=== PATIENT | male | born 1985 | race Caucasian/White ===

== ENCOUNTER 2021-07-02 23:57 | Emergency (ER) | payer SELFPAY ==
[~2021-07-02] VITALS: Ht 190.5 cm; Wt 74.8 kg
--- NOTE | 2021-07-03 00:19 | NUR ---
[facility] 860 REQUESTING FOR WHEELCHAIR. PT ALERT AND ORIENTED X3. PT UNABLE TO AMBULATE BROUGHT IN ON A STRETCHER.
--- NOTE | 2021-07-03 01:33 | NUR ---
pt resting comfortably no complaints at this time.
--- NOTE | 2021-07-03 02:45 | NUR ---
pt sleeping, vss, attached to monitor.
--- NOTE | 2021-07-03 03:50 | NUR ---
Patient is resting comfortably in bed with eyes closed. Easily aroused. VSS
--- NOTE | 2021-07-03 04:44 | NUR ---
pt sleeping, attached to monitor and pox. vss
--- NOTE | 2021-07-03 05:30 | NUR ---
Patient is resting comfortably in bed with eyes closed. Easily aroused. VSS
--- NOTE | 2021-07-03 06:40 | NUR ---
pt sleeping, attached to monitor and pox
--- NOTE | 2021-07-03 11:40 | NUR ---
PT WAS PROVIDED WITH WHEELCHAIR TO HELP WITH MOBILIZATION
--- NOTE | 2021-07-03 11:45 | NUR ---
Patient discharged to home in stable condition. Written and verbal after care instructions given. Patient verbalizes understanding of instruction.
[2021-07-03 12:40] VITALS: BP 123/78
== END 2021-07-03 12:40 | disposition home or self-care (01) ==
LOC: ER 23:57
DX: Z00.8 Encounter for other general examination (principal); Z99.3 Dependence on wheelchair; Z93.3 Colostomy status

== ENCOUNTER 2023-10-03 11:38 | Inpatient (IN) | payer OTHER ==
[~2023-10-03] VITALS: Ht 190.5 cm; Wt 80.3 kg
[2023-10-03] MEDS ORDERED: VANCOMYCIN 1 GM in IV D5W 250 ML IV ONE (12:00)
[2023-10-03] MEDS ORDERED: LORAZEPAM INJ 2 MG/ML VIAL IV ONE (12:00)
[2023-10-03] MEDS ORDERED: PIPERACILLIN /TAZOBACTAM 3.375 G in IV D5W 50 ML IV ONE (12:00)
[2023-10-03] MEDS ORDERED: FLUCONAZOLE IN NS 100 MG in PREMIX 1 EA IV SCH ×2 (12:00)
[2023-10-03] MEDS ORDERED: IV NS 0.9% 1,000 ML BAG IV ONE ×2 (12:30→14:00)
[2023-10-03] MEDS ORDERED: VANCOMYCIN 1 GM /D5W 250 ML PB IV ONE (12:48)
[2023-10-03] MEDS ORDERED: PIPERACI/TAZO 3.375GM/D5W 50ML PB IV ONE (12:48)
[2023-10-03] MEDS ORDERED: FLUCONAZOLE IN NS 100 MG in PREMIX 1 EA IV ONE ×2 (12:52)
[2023-10-03] MEDS ORDERED: HALOPERIDOL LACTATE INJ 5 MG/ML VIAL IM ONE (13:00)
[2023-10-03] MEDS ORDERED: MORPHINE SULFATE INJ 2 MG/ML DISP.SYRIN IV ONE (13:00)
[2023-10-03] MEDS ORDERED: ONDANSETRON HCL/PF 4 MG/2 ML VIAL IVP ONE (13:00)
[2023-10-03] MEDS ORDERED: MORPHINE SULFATE INJ 4 MG/ML DISP.SYRIN ONE (13:04)
[2023-10-03] MEDS ORDERED: HALOPERIDOL LACTATE INJ 5 MG/ML VIAL ONE ×2 (13:04→13:10)
[2023-10-03] MEDS ORDERED: ONDANSETRON HCL/PF 4 MG/2 ML VIAL ONE (13:04)
[2023-10-03 13:10] LABS: BASOPHILS # (AUTO) 0.2 K/uL (0.0-0.2); BASOPHILS % (AUTO) 0.7 % (0.0-2.0); EOSINOPHILS # (AUTO) 0.1 K/uL (0.0-0.7); EOSINOPHILS % (AUTO) 0.2 % (0.0-6.0); HEMATOCRIT 23 % (39-51); LYMPHOCYTES # (AUTO) 10.2 K/uL (0.8-4.8); LYMPHOCYTES % (AUTO) 36.8 % (20.0-44.0); MEAN CORPUSCULAR HEMOGLOBIN 18 PG (26.0-33.0); MEAN CORPUSCULAR HGB CONC 28 g/dl (31.0-36.0); MEAN CORPUSCULAR VOLUME 64 fL (80-96); MONOCYTES # (AUTO) 1.6 K/uL (0.1-1.30); MONOCYTES % (AUTO) 5.8 % (2.0-12.0); NEUTROPHILS # (AUTO) 15.8 K/uL (1.8-8.9); NEUTROPHILS % (AUTO) 56.5 % (43.0-81.0); PLATELET COUNT (AUTO) 567 K/uL (150-450); RED BLOOD CELL COUNT(AUTO) 3.62 MIL/uL (4.5-6.0); RED CELL DISTRIBUTION WIDTH 21.7 % (11.5-15.0); WHITE BLOOD COUNT (AUTO) 27.9 K/uL (4.3-11.0)
[2023-10-03 13:11] LABS: ALANINE AMINOTRANSFERASE 29 U/L (12-78); ALCOHOL, BLOOD < 3 mg/dL (0-10); ALKALINE PHOSPHATASE 218 U/L (46-116); ASPARTATE AMINOTRANSFERASE 37 U/L (15-37); BILIRUBIN,DIRECT 0.1 mg/dL (0.0-0.2); BILIRUBIN,TOTAL 0.3 mg/dL (0.2-1.0); CALCIUM, SERUM 8.2 mg/dL (8.5-10.1); CARBON DIOXIDE 26 mmol/L (21-32); CHLORIDE 86 mmol/L (98-107); CREATININE 0.9 mg/dL (0.6-1.3); GLUCOSE 107 mg/dL (74-106); TOTAL PROTEIN, SERUM 6.8 g/dL (6.4-8.2); UREA NITROGEN, BLOOD 11 mg/dL (7-18)
[2023-10-03] MEDS ORDERED: IOHEXOL-300 100 ML VIAL IV ONE (13:14)
[2023-10-03] MEDS ORDERED: CT SWABBABLE VALVE TRANS SET 1 EA INFUS.SET MC ONE (13:14)
[2023-10-03] MEDS ORDERED: IV NS 0.9% 250 ML IV ONE (13:14)
[2023-10-03 13:16] LABS: INR 1.13 (0.91-1.10); PARTIAL THROMBOPLASTIN TIME 31.3 SEC (24.3-34.3); PROTHROMBIN TIME 11.9 SECS (9.2-11.1)
[2023-10-03 13:18] LABS: THYROID STIMULATING HORMONE 2.641 uIU/mL (0.358-3.74)
[2023-10-03 13:21] LABS: HEMOGLOBIN 6.5 g/dL (13.5-17.5)
[2023-10-03] MEDS ORDERED: FLUCONAZOLE IN NS,PREMIX 200 MG in PREMIX 1 EA IV ONE ×2 (13:30)
[2023-10-03] MEDS ORDERED: [UNRECOGNIZED DRUG - OTHER] (13:36)
[2023-10-03] MEDS ORDERED: CHOL200059 PO (13:36)
[2023-10-03] MEDS ORDERED: ASCO-340 PO (13:36)
[2023-10-03] MEDS ORDERED: AMIN30LI2 PO (13:36)
[2023-10-03] MEDS ORDERED: NA P133E RC (13:36)
[2023-10-03] MEDS ORDERED: BISA10SU11 RC (13:36)
[2023-10-03] MEDS ORDERED: ASPI-1169 PO (13:36)
[2023-10-03] MEDS ORDERED: LORA-259 PO (13:36)
[2023-10-03] MEDS ORDERED: PANT40TA49 PO (13:36)
[2023-10-03] MEDS ORDERED: ACET-868 PO (13:36)
[2023-10-03] MEDS ORDERED: ZINC220C6 PO (13:36)
[2023-10-03] MEDS ORDERED: DIPH25TA25 PO (13:36)
[2023-10-03] MEDS ORDERED: MULT-213 PO (13:36)
[2023-10-03] MEDS ORDERED: ESCI5TAB PO (13:36)
[2023-10-03] MEDS ORDERED: [UNRECOGNIZED DRUG - OTHER] TP (13:36)
[2023-10-03] MEDS ORDERED: TOLT2CAP PO (13:36)
[2023-10-03] MEDS ORDERED: MAGN400O6 PO (13:36)
[2023-10-03] MEDS ORDERED: HEPA500039 SQ (13:36)
[2023-10-03] MEDS ORDERED: HYDR-3980 PO (13:36)
[2023-10-03] MEDS ORDERED: XEROFORM TD (13:36)
[2023-10-03] MEDS ORDERED: CRAN425C6 PO (13:36)
[2023-10-03] MEDS ORDERED: ACET-2605 PO (13:36)
[2023-10-03 13:37] LABS: SODIUM SERUM 120 mmol/L (136-145)
[2023-10-03 13:38] LABS: ALBUMIN 0.9 g/dL (3.4-5.0); LACTIC ACID 3.4 mmol/L (0.4-2.0); POTASSIUM 2.7 mmol/L (3.5-5.1); SERUM AMMONIA 4 umol/L (11-32)
[2023-10-03 13:47] LABS: ANISOCYTOSIS 1+; BAND % (MANUAL) 4 % (0.0-5.0); HYPOCHROMASIA 1+; LYMPHOCYTES % (MANUAL) 18 % (16-48); MONOCYTES % (MANUAL) 3 % (0-11.0); NEUTROPHILS % (MANUAL) 75 (42-76); PLATELET ESTIMATE ADEQUATE; STOMATOCYTES 1+; TARGET CELLS 1+
[2023-10-03] MEDS ORDERED: IV PREMIX D5 1/2NS + KCL 1,000 ML IV ONE (14:30)
[2023-10-03 14:41] LABS: APPEARANCE,URINE CLOUDY (CLEAR); BILIRUBIN,URINE NEGATIVE (NEGATIVE); BLOOD, URINE 2+ Ery/uL (NEGATIVE); COLOR,URINE YELLOW (YELLOW); KETONES,URINE NEGATIVE (NEGATIVE); LEUKOCYTE ESTERASE ,URINE 3+ (NEGATIVE); NITRITE, URINE NEGATIVE (NEGATIVE); PROTEIN,URINE 2+ mg/dl (NEGATIVE); UGLUCOSE NEGATIVE (NEGATIVE); UROBILINOGEN,URINE 0.2 EU/dL (0.2)
[2023-10-03 15:17] LABS: RBC,URINE 21-50 /HPF (0-2); WBC,URINE 51-80 /HPF (0-3)
[2023-10-03 15:18] LABS: ADD URINE CULTURE YES; BACTERIA,URINE 2+ /HPF (None Seen)
[2023-10-03 15:19] LABS: PH,URINE 8.5 (5.0-8.0)
[2023-10-03 15:21] LABS: OTHER CRYSTALS,URINE AMMONIUM BIURATES 1+ /HPF (None Seen); URINE AMORPHOUS PHOSPHATES Many /HPF (None Seen)
[2023-10-03] MEDS ORDERED: MAGNESIUM HYDROXIDE 30 ML UDC PO PRN (17:30)
[2023-10-03] MEDS ORDERED: ZOLPIDEM TARTRATE 5 MG TABLET PO PRN (17:30)
[2023-10-03] MEDS ORDERED: Z GUARD REMEDY 4 OZ OINT TP PRN (17:30)
[2023-10-03] MEDS ORDERED: ONDANSETRON HCL/PF 4 MG/2 ML VIAL IVP PRN (17:30)
[2023-10-03] MEDS ORDERED: MAG HYDROX/AL HYDROX/SIMETH 30 ML UDC PO PRN (17:30)
[2023-10-03] MEDS ORDERED: ALBUMIN 5% 12.5 GM/250 ML BOTTLE IV ONE (18:00)
[2023-10-03] MEDS: TOLTERODINE 2 MG CAP.SR PO SCH (19:07)
[2023-10-03] MEDS ORDERED: ALBUMIN 5% 12.5 GM in PREMIX 1 EA IV ONE (19:30)
[2023-10-03] MEDS: CEFEPIME 1 GM in IV D5W 50 ML IV SCH (20:00)
[2023-10-03] MEDS: VANCOMYCIN 1 GM in IV D5W 250 ML IV SCH (21:41)
[2023-10-03 22:16] LABS: AMPHETAMINE, URINE NEGATIVE (NEGATIVE); BARBITURATE, URINE NEGATIVE (NEGATIVE); BENZODIAZEPINE, URINE NEGATIVE (NEGATIVE); CANNABINOID, URINE NEGATIVE (NEGATIVE); COCCAINE, URINE NEGATIVE (NEGATIVE); PHENCYCLIDINE SCREEN,URINE NEGATIVE (NEGATIVE)
[2023-10-03 22:19] LABS: OPIATE, URINE POSITIVE (NEGATIVE)
[2023-10-04] VITALS: BP 92/57; TEMP 97.5; O2SAT 100
[2023-10-04] MEDS: IV NS 0.9% 1,000 ML IV PRN ×2 (00:09→21:14)
[2023-10-04] MEDS ORDERED: VANCOMYCIN 1 GM /D5W 250 ML PB IV ONE (05:21)
[2023-10-04] MEDS: VANCOMYCIN 1 GM in IV D5W 250 ML IV SCH ×3 (05:23→21:00)
[2023-10-04 08:00] VITALS: BP 95/47; TEMP 98.5; O2SAT 97
[2023-10-04] MEDS ORDERED: Medication Not On Formulary EA (Cranberry Extract (Cranberry) 450 MG) PO SCH (09:00)
[2023-10-04] MEDS ORDERED: FLUCONAZOLE IN NS,PREMIX 400 MG in PREMIX 1 EA IV SCH ×2 (09:00)
[2023-10-04] MEDS: TOLTERODINE 2 MG CAP.SR PO SCH ×2 (10:40→16:41)
[2023-10-04] MEDS: CEFEPIME 1 GM in IV D5W 50 ML IV SCH ×2 (10:40→20:30)
[2023-10-04] MEDS: ASCORBIC ACID 500 MG TABLET PO SCH (10:41)
[2023-10-04] MEDS: ESCITALOPRAM OXALATE (10 MG) 10 MG TABLET PO SCH (10:41)
[2023-10-04] MEDS: MULTIVIT W/MINERALS 1 TAB TABLET PO SCH (10:41)
[2023-10-04] MEDS: CHOLECALCIFEROL 1,000 UNIT TABLET (VIT D3) PO SCH (10:41)
[2023-10-04] MEDS: MIDODRINE HCL (5MG) 5 MG TABLET PO SCH ×3 (10:44→16:41)
[2023-10-04] MEDS: PROSOURCE / PROSTAT (PYXIS) 30 ML UDC PO SCH (11:29)
[2023-10-04 12:00] VITALS: BP 95/50; TEMP 98.1; O2SAT 96
[2023-10-04] MEDS: FLUCONAZOLE IN NS,PREMIX 100 MG in PREMIX 1 EA IV SCH ×2 (14:03)
[2023-10-04 16:00] VITALS: BP 96/49; TEMP 99.9; O2SAT 97
[2023-10-04] MEDS: PANTOPRAZOLE 40 MG VIAL IV SCH (16:41)
[2023-10-04] MEDS: ACETAMINOPHEN 325 MG TABLET PO PRN (16:42)
[2023-10-04 18:00] LABS: HEMOGLOBIN 5.8 g/dL (13.5-17.5)
[2023-10-04 20:00] VITALS: BP 111/76; TEMP 97.9; O2SAT 97
[2023-10-05 04:00] VITALS: BP 100/69; TEMP 98.2; O2SAT 97
[2023-10-05] MEDS: VANCOMYCIN 1 GM in IV D5W 250 ML IV SCH ×2 (04:33→13:56)
[2023-10-05] MEDS: ACETAMINOPHEN 325 MG TABLET PO PRN ×2 (05:38→22:47)
[2023-10-05] MEDS: IV NS 0.9% 1,000 ML IV PRN ×2 (05:39→19:54)
[2023-10-05] MEDS: MIDODRINE HCL (5MG) 5 MG TABLET PO SCH ×3 (09:00→17:00)
[2023-10-05] MEDS: ASCORBIC ACID 500 MG TABLET PO SCH (09:01)
[2023-10-05] MEDS: PANTOPRAZOLE 40 MG VIAL IV SCH ×2 (09:02→17:00)
[2023-10-05] MEDS: CHOLECALCIFEROL 1,000 UNIT TABLET (VIT D3) PO SCH (09:02)
[2023-10-05] MEDS: ESCITALOPRAM OXALATE (10 MG) 10 MG TABLET PO SCH (09:09)
[2023-10-05] MEDS: CEFEPIME 1 GM in IV D5W 50 ML IV SCH ×2 (09:09→19:54)
[2023-10-05] MEDS: TOLTERODINE 2 MG CAP.SR PO SCH ×2 (09:09→17:00)
[2023-10-05] MEDS: MULTIVIT W/MINERALS 1 TAB TABLET PO SCH (09:10)
[2023-10-05] MEDS: PROSOURCE / PROSTAT (PYXIS) 30 ML UDC PO SCH ×4 (09:35→17:00)
[2023-10-05 12:00] VITALS: BP 100/66; TEMP 97.9; O2SAT 97
[2023-10-05] MEDS: FLUCONAZOLE IN NS,PREMIX 100 MG in PREMIX 1 EA IV SCH ×2 (12:00)
[2023-10-05] MEDS: SOD FERRIC GLUC 125 MG in IV NS 0.9% 100 ML IV SCH ×2 (14:00→17:31)
[2023-10-05 20:00] VITALS: BP 96/51; TEMP 99.5; O2SAT 98
[2023-10-05] MEDS: DOXYCYCLINE 100 MG in IV D5W 100 ML IV SCH (20:45)
[2023-10-06] VITALS: BP 100/59; TEMP 98.2; O2SAT 98
[2023-10-06 04:00] VITALS: BP 113/62; TEMP 97.6; O2SAT 97
[2023-10-06] MEDS: IV NS 0.9% 1,000 ML IV PRN ×2 (04:10→19:30)
[2023-10-06 08:00] VITALS: BP 113/62; TEMP 97.6; O2SAT 97
[2023-10-06] MEDS: CEFEPIME 1 GM in IV D5W 50 ML IV SCH ×2 (08:00→21:18)
[2023-10-06] MEDS: TOLTERODINE 2 MG CAP.SR PO SCH ×2 (09:00→17:16)
[2023-10-06] MEDS: MULTIVIT W/MINERALS 1 TAB TABLET PO SCH (09:00)
[2023-10-06] MEDS: DOXYCYCLINE 100 MG in IV D5W 100 ML IV SCH ×2 (09:00→20:02)
[2023-10-06] MEDS: ASCORBIC ACID 500 MG TABLET PO SCH (09:00)
[2023-10-06] MEDS: CHOLECALCIFEROL 1,000 UNIT TABLET (VIT D3) PO SCH (09:00)
[2023-10-06] MEDS: PROSOURCE / PROSTAT (PYXIS) 30 ML UDC PO SCH ×3 (09:00→17:00)
[2023-10-06] MEDS: MIDODRINE HCL (5MG) 5 MG TABLET PO SCH ×3 (09:00→17:00)
[2023-10-06] MEDS: PANTOPRAZOLE 40 MG VIAL IV SCH ×2 (09:00→17:16)
[2023-10-06] MEDS: ESCITALOPRAM OXALATE (10 MG) 10 MG TABLET PO SCH (09:00)
[2023-10-06 12:00] VITALS: BP 113/62; TEMP 97.6; O2SAT 97
[2023-10-06] MEDS: MUPIROCIN OINT 2% 22 GM TUBE TP SCH (14:00)
[2023-10-06] MEDS: SOD FERRIC GLUC 125 MG in IV NS 0.9% 100 ML IV SCH (14:03)
[2023-10-06 16:00] VITALS: BP 113/62; TEMP 97.6; O2SAT 97
[2023-10-06 18:28] LABS: HEMOGLOBIN 6.6 g/dL (13.5-17.5)
[2023-10-06 20:00] VITALS: BP 108/62; TEMP 97.3; O2SAT 100
[2023-10-06] MEDS: ACETAMINOPHEN 325 MG TABLET PO PRN (23:03)
[2023-10-07] VITALS: BP_SYST 101; BP_SYST 95; BP_DIAS 56; BP_DIAS 62; TEMP 97.5; TEMP 98.6; O2SAT 100
[2023-10-07] MEDS ORDERED: MORPHINE SULFATE INJ 4 MG/ML DISP.SYRIN IV PRN (01:30)
[2023-10-07] MEDS: MUPIROCIN OINT 2% 22 GM TUBE TP SCH ×2 (02:29→15:05)
[2023-10-07 04:00] VITALS: BP 101/62; TEMP 98.6; O2SAT 100
[2023-10-07] MEDS: IV NS 0.9% 1,000 ML IV PRN (04:43)
[2023-10-07] MEDS: HYDROCODONE/APAP 5/325MG TABLET PO PRN ×2 (05:41→20:41)
[2023-10-07] MEDS ORDERED: IV NS 0.9% 1,000 ML IV PRN (06:13)
[2023-10-07 08:00] VITALS: BP 103/55; TEMP 97.7; O2SAT 97
[2023-10-07] MEDS: CEFEPIME 1 GM in IV D5W 50 ML IV SCH ×2 (08:50→20:36)
[2023-10-07] MEDS: ASCORBIC ACID 500 MG TABLET PO SCH (08:51)
[2023-10-07] MEDS: CHOLECALCIFEROL 1,000 UNIT TABLET (VIT D3) PO SCH (08:51)
[2023-10-07] MEDS: MULTIVIT W/MINERALS 1 TAB TABLET PO SCH (08:51)
[2023-10-07] MEDS: ESCITALOPRAM OXALATE (10 MG) 10 MG TABLET PO SCH (08:52)
[2023-10-07] MEDS: MIDODRINE HCL (5MG) 5 MG TABLET PO SCH ×4 (08:52→17:00)
[2023-10-07] MEDS: PANTOPRAZOLE 40 MG VIAL IV SCH ×2 (08:53→17:19)
[2023-10-07] MEDS: TOLTERODINE 2 MG CAP.SR PO SCH ×2 (08:53→17:19)
[2023-10-07] MEDS: PROSOURCE / PROSTAT (PYXIS) 30 ML UDC PO SCH ×3 (08:54→17:20)
[2023-10-07] MEDS: DOXYCYCLINE 100 MG in IV D5W 100 ML IV SCH ×2 (09:55→21:00)
[2023-10-07 12:00] VITALS: BP 100/62; TEMP 97.7; O2SAT 97
[2023-10-07] MEDS: SOD FERRIC GLUC 125 MG in IV NS 0.9% 100 ML IV SCH (14:59)
[2023-10-07 16:00] VITALS: BP 102/59; TEMP 97.3; O2SAT 100
[2023-10-07 20:00] VITALS: BP 100/55; TEMP 98.4; O2SAT 100
[2023-10-08] VITALS: BP 95/56; TEMP 98.6; O2SAT 100
[2023-10-08] MEDS: MUPIROCIN OINT 2% 22 GM TUBE TP SCH ×2 (02:44→14:00)
[2023-10-08 04:00] VITALS: BP 95/56; TEMP 98.6; O2SAT 100
[2023-10-08] MEDS: CEFEPIME 1 GM in IV D5W 50 ML IV SCH (07:47)
[2023-10-08 08:00] VITALS: BP 95/56; TEMP 98.6; O2SAT 100
[2023-10-08] MEDS: PROSOURCE / PROSTAT (PYXIS) 30 ML UDC PO SCH ×3 (08:25→16:36)
[2023-10-08] MEDS: PANTOPRAZOLE 40 MG VIAL IV SCH ×2 (08:29→16:40)
[2023-10-08] MEDS: DOXYCYCLINE 100 MG in IV D5W 100 ML IV SCH ×2 (08:29→21:00)
[2023-10-08] MEDS: MULTIVIT W/MINERALS 1 TAB TABLET PO SCH (08:30)
[2023-10-08] MEDS: ASCORBIC ACID 500 MG TABLET PO SCH (08:30)
[2023-10-08] MEDS: CHOLECALCIFEROL 1,000 UNIT TABLET (VIT D3) PO SCH (08:30)
[2023-10-08] MEDS: TOLTERODINE 2 MG CAP.SR PO SCH ×2 (08:30→16:37)
[2023-10-08] MEDS: ESCITALOPRAM OXALATE (10 MG) 10 MG TABLET PO SCH (08:31)
[2023-10-08] MEDS: MIDODRINE HCL (5MG) 5 MG TABLET PO SCH ×3 (08:32→16:37)
[2023-10-08 12:00] VITALS: BP 95/56; TEMP 98.6; O2SAT 100
[2023-10-08] MEDS: SOD FERRIC GLUC 125 MG in IV NS 0.9% 100 ML IV SCH (15:05)
[2023-10-08 16:00] VITALS: BP 95/56; TEMP 98.6; O2SAT 100
[2023-10-08] MEDS: MEROPENEM 1 G in IV NS 0.9% 100 ML IV SCH ×3 (16:10→21:00)
[2023-10-09] VITALS: BP 123/69; TEMP 98.2; O2SAT 100
[2023-10-09] MEDS: MUPIROCIN OINT 2% 22 GM TUBE TP SCH ×2 (02:00→13:01)
[2023-10-09] MEDS ORDERED: HYDROCODONE/APAP 5/325MG TABLET PO PRN (02:30)
[2023-10-09] MEDS: HYDROCODONE/APAP 5/325MG TABLET PO PRN ×3 (02:32→18:21)
[2023-10-09 04:00] VITALS: BP 104/62; TEMP 98.1; O2SAT 96
[2023-10-09] MEDS: MEROPENEM 1 G in IV NS 0.9% 100 ML IV SCH ×3 (05:00→20:44)
[2023-10-09] MEDS: PANTOPRAZOLE 40 MG VIAL IV SCH ×2 (08:22→16:55)
[2023-10-09] MEDS: DOXYCYCLINE 100 MG in IV D5W 100 ML IV SCH ×2 (08:22→20:44)
[2023-10-09] MEDS: MIDODRINE HCL (5MG) 5 MG TABLET PO SCH ×3 (08:23→16:55)
[2023-10-09] MEDS: ESCITALOPRAM OXALATE (10 MG) 10 MG TABLET PO SCH (08:23)
[2023-10-09] MEDS: PROSOURCE / PROSTAT (PYXIS) 30 ML UDC PO SCH ×3 (08:23→16:55)
[2023-10-09] MEDS: TOLTERODINE 2 MG CAP.SR PO SCH ×2 (08:23→16:55)
[2023-10-09] MEDS: MULTIVIT W/MINERALS 1 TAB TABLET PO SCH (08:24)
[2023-10-09] MEDS: ASCORBIC ACID 500 MG TABLET PO SCH (08:24)
[2023-10-09] MEDS: CHOLECALCIFEROL 1,000 UNIT TABLET (VIT D3) PO SCH (08:24)
[2023-10-09] MEDS: SOD FERRIC GLUC 125 MG in IV NS 0.9% 100 ML IV SCH (13:01)
[2023-10-10] MEDS: MUPIROCIN OINT 2% 22 GM TUBE TP SCH ×2 (01:20→14:00)
[2023-10-10] MEDS: MEROPENEM 1 G in IV NS 0.9% 100 ML IV SCH ×3 (04:51→21:00)
[2023-10-10] MEDS: PROSOURCE / PROSTAT (PYXIS) 30 ML UDC PO SCH ×3 (08:09→17:00)
[2023-10-10] MEDS: TOLTERODINE 2 MG CAP.SR PO SCH ×3 (08:09→17:00)
[2023-10-10] MEDS: ASCORBIC ACID 500 MG TABLET PO SCH (08:09)
[2023-10-10] MEDS: CHOLECALCIFEROL 1,000 UNIT TABLET (VIT D3) PO SCH (08:10)
[2023-10-10] MEDS: ESCITALOPRAM OXALATE (10 MG) 10 MG TABLET PO SCH (08:10)
[2023-10-10] MEDS: MULTIVIT W/MINERALS 1 TAB TABLET PO SCH (08:10)
[2023-10-10] MEDS: PANTOPRAZOLE 40 MG VIAL IV SCH ×2 (08:22→17:00)
[2023-10-10] MEDS: DOXYCYCLINE 100 MG in IV D5W 100 ML IV SCH ×2 (08:22→21:00)
[2023-10-10] MEDS: MIDODRINE HCL (5MG) 5 MG TABLET PO SCH ×3 (08:41→17:00)
[2023-10-10] MEDS ORDERED: MERO1PIG IV (12:10)
[2023-10-10] MEDS ORDERED: DOXY-326 PO (12:10)
[2023-10-10] MEDS ORDERED: PANT40TA2 PO (12:10)
[2023-10-10] MEDS ORDERED: MIDO5TAB4 PO (12:10)
[2023-10-10 20:00] VITALS: BP 0/0
[2023-10-11] VITALS: BP 0/0; O2SAT 96
[2023-10-11] MEDS: MUPIROCIN OINT 2% 22 GM TUBE TP SCH ×2 (02:00→14:43)
[2023-10-11] MEDS: HYDROCODONE/APAP 5/325MG TABLET PO PRN (03:56)
[2023-10-11 04:00] VITALS: BP 104/66; TEMP 99.2; O2SAT 98
[2023-10-11] MEDS: MEROPENEM 1 G in IV NS 0.9% 100 ML IV SCH ×3 (05:00→21:00)
[2023-10-11] MEDS: PROSOURCE / PROSTAT (PYXIS) 30 ML UDC PO SCH ×3 (09:00→17:00)
[2023-10-11] MEDS: DOXYCYCLINE 100 MG in IV D5W 100 ML IV SCH ×2 (09:00→21:00)
[2023-10-11] MEDS: MIDODRINE HCL (5MG) 5 MG TABLET PO SCH ×3 (09:00→17:00)
[2023-10-11] MEDS: PANTOPRAZOLE 40 MG VIAL IV SCH ×2 (09:00→16:55)
[2023-10-11] MEDS: CHOLECALCIFEROL 1,000 UNIT TABLET (VIT D3) PO SCH (09:06)
[2023-10-11] MEDS: ESCITALOPRAM OXALATE (10 MG) 10 MG TABLET PO SCH (09:06)
[2023-10-11] MEDS: MULTIVIT W/MINERALS 1 TAB TABLET PO SCH (09:06)
[2023-10-11] MEDS: TOLTERODINE 2 MG CAP.SR PO SCH ×2 (09:07→16:59)
[2023-10-11] MEDS: ASCORBIC ACID 500 MG TABLET PO SCH (09:07)
[2023-10-11 09:38] VITALS: BP 0/0; O2SAT 0
[2023-10-11 12:00] VITALS: BP 100/47; TEMP 97.5; O2SAT 0
[2023-10-11 16:00] VITALS: BP 100/47; TEMP 97.5
[2023-10-11 20:00] VITALS: BP 107/70; TEMP 98.8; O2SAT 94
[2023-10-12] MEDS: MUPIROCIN OINT 2% 22 GM TUBE TP SCH (02:00)
[2023-10-12 04:00] VITALS: BP 112/72; TEMP 98.1; O2SAT 93
[2023-10-12] MEDS: MEROPENEM 1 G in IV NS 0.9% 100 ML IV SCH (05:00)
[2023-10-12] MEDS: HYDROCODONE/APAP 5/325MG TABLET PO PRN ×2 (06:27→12:02)
[2023-10-12 08:00] VITALS: BP 105/59; TEMP 98.4; O2SAT 96
[2023-10-12] MEDS: MIDODRINE HCL (5MG) 5 MG TABLET PO SCH (08:26)
[2023-10-12] MEDS: PANTOPRAZOLE 40 MG VIAL IV SCH (08:26)
[2023-10-12] MEDS: TOLTERODINE 2 MG CAP.SR PO SCH (08:26)
[2023-10-12] MEDS: DOXYCYCLINE 100 MG in IV D5W 100 ML IV SCH (08:26)
[2023-10-12] MEDS: ESCITALOPRAM OXALATE (10 MG) 10 MG TABLET PO SCH (08:26)
[2023-10-12] MEDS: ASCORBIC ACID 500 MG TABLET PO SCH (08:27)
[2023-10-12] MEDS: MULTIVIT W/MINERALS 1 TAB TABLET PO SCH (08:27)
[2023-10-12] MEDS: PROSOURCE / PROSTAT (PYXIS) 30 ML UDC PO SCH (08:27)
[2023-10-12] MEDS: CHOLECALCIFEROL 1,000 UNIT TABLET (VIT D3) PO SCH (08:27)
[2023-10-12] MEDS ORDERED: DAKINS QUARTER STRENGTH (0.125%) 480 ML BOTTLE TOP SCH (09:00)
[2023-10-12] MEDS ORDERED: IV NS 0.9% 500 ML IV ONE (12:30)
== END 2023-10-12 12:42 | DRG 720 ==
LOC: ER 11:42 → TRANSITION 18:36 → TELE1 22:17 → MEDSG1 10-11 17:20
PROVIDERS: ADMIT Nurse Practitioner Acute Care; ATTEND Internal Medicine
PROC: 05HY33Z Insertion of Infusion Device into Upper Vein, Percutaneous Approach (ICD-10-PCS; principal; 2023-10-03)
DX: A41.9 Sepsis, unspecified organism (principal); R65.21 Severe sepsis with septic shock; G93.41 Metabolic encephalopathy; E43 Unspecified severe protein-calorie malnutrition; L89.154 Pressure ulcer of sacral region, stage 4; E87.20 Acidosis, unspecified; G82.20 Paraplegia, unspecified; E86.1 Hypovolemia; E66.01 Morbid (severe) obesity due to excess calories; E87.1 Hypo-osmolality and hyponatremia; E87.6 Hypokalemia; E88.09 Other disorders of plasma-protein metabolism, not elsewhere classified; I10 Essential (primary) hypertension; Z74.01 Bed confinement status; Z98.1 Arthrodesis status; Z93.1 Gastrostomy status; Z93.3 Colostomy status; N39.0 Urinary tract infection, site not specified; V89.2XXS Person injured in unspecified motor-vehicle accident, traffic, sequela; R13.10 Dysphagia, unspecified; M46.28 Osteomyelitis of vertebra, sacral and sacrococcygeal region; D64.9 Anemia, unspecified; Z68.22 Body mass index [BMI] 22.0-22.9, adult; F33.2 Major depressive disorder, recurrent severe without psychotic features; Z91.199 Patient's noncompliance with other medical treatment and regimen due to unspecified reason; R62.7 Adult failure to thrive; K92.2 Gastrointestinal hemorrhage, unspecified; Z53.20 Procedure and treatment not carried out because of patient's decision for unspecified reasons; W19.XXXA Unspecified fall, initial encounter; Y93.9 Activity, unspecified; Y92.89 Other specified places as the place of occurrence of the external cause; L89.629 Pressure ulcer of left heel, unspecified stage; L89.619 Pressure ulcer of right heel, unspecified stage
CPT/HCPCS: 36415; 71045-TC; 80048-TC; 80076-TC; 81001; 82140-TC; 83605-TC; 84443-TC; 84484-TC; 85025-TC; 85027-TC; 85730-TC; 86850-TC; 87040-TC; 87081-TC; 87086-TC; 87186-TC; A4216; A4223; A6253; A6403; C9113; G0378; G0480; J0692; J1450; J1630; J2185; J2270; J2405; J2543; J2916; J3370; J3490; J7030; J7040; J7050; J7060; P9045; Q9967

== ENCOUNTER 2024-04-02 19:14 | Inpatient (IN) | payer OTHER ==
[~2024-04-02] VITALS: Ht 185.4 cm; Wt 88.9 kg
[~2024-04-02 19:14] MED LIST: ACET-2605 PO; ACET-868 PO; AMIN30LI2 PO; ASCO-340 PO; ASPI-1169 PO; BISA10SU11 RC; CHOL200059 PO; CRAN425C6 PO; DIPH25TA25 PO; DOXY-326 PO; ESCI5TAB PO; HEPA500039 SQ; HYDR-3980 PO; LORA-259 PO; MAGN400O6 PO; MERO1PIG IV; MIDO5TAB4 PO; MULT-213 PO; NA P133E RC; PANT40TA2 PO; PANT40TA49 PO; TOLT2CAP PO; XEROFORM TD; ZINC220C6 PO; [UNRECOGNIZED DRUG - OTHER]; [UNRECOGNIZED DRUG - OTHER] TP
[2024-04-02 20:31] LABS: BASOPHILS # (AUTO) 0.1 K/uL (0.0-0.2); BASOPHILS % (AUTO) 0.7 % (0.0-2.0); EOSINOPHILS # (AUTO) 0.1 K/uL (0.0-0.7); HEMATOCRIT 22 % (39-51); LYMPHOCYTES # (AUTO) 2.8 K/uL (0.8-4.8); LYMPHOCYTES % (AUTO) 19.6 % (20.0-44.0); MEAN CORPUSCULAR HEMOGLOBIN 24 PG (26.0-33.0); MEAN CORPUSCULAR HGB CONC 29 g/dl (31.0-36.0); MEAN CORPUSCULAR VOLUME 84 fL (80-96); MONOCYTES # (AUTO) 1.3 K/uL (0.1-1.30); NEUTROPHILS # (AUTO) 9.9 K/uL (1.8-8.9); NEUTROPHILS % (AUTO) 69.7 % (43.0-81.0); RED BLOOD CELL COUNT(AUTO) 2.61 MIL/uL (4.5-6.0); RED CELL DISTRIBUTION WIDTH 22.9 % (11.5-15.0); WHITE BLOOD COUNT (AUTO) 14.3 K/uL (4.3-11.0)
[2024-04-02 20:42] LABS: HEMOGLOBIN 6.3 g/dL (13.5-17.5); PLATELET COUNT (AUTO) 1117 K/uL (150-450)
[2024-04-02] MEDS ORDERED: CEFEPIME 1 GM VIAL ONE (20:48)
[2024-04-02] MEDS ORDERED: ONDANSETRON HCL/PF 4 MG/2 ML VIAL ONE (20:48)
[2024-04-02] MEDS ORDERED: MORPHINE SULFATE INJ 4 MG/ML DISP.SYRIN ONE (20:49)
[2024-04-02 20:54] LABS: CALCIUM, SERUM 8.1 mg/dL (8.5-10.1); CARBON DIOXIDE 27 mmol/L (21-32); CHLORIDE 101 mmol/L (98-107); GLUCOSE 86 mg/dL (74-106); POTASSIUM 4.6 mmol/L (3.5-5.1); SODIUM SERUM 131 mmol/L (136-145); UREA NITROGEN, BLOOD 11 mg/dL (7-18)
[2024-04-02 20:57] LABS: APPEARANCE,URINE Cloudy (CLEAR); BILIRUBIN,URINE Negative (NEGATIVE); BLOOD, URINE Moderate Ery/uL (NEGATIVE); COLOR,URINE YELLOW (YELLOW); KETONES,URINE Negative (NEGATIVE); LEUKOCYTE ESTERASE ,URINE Large (NEGATIVE); NITRITE, URINE Positive (NEGATIVE); PROTEIN,URINE 100 mg/dl (NEGATIVE); UGLUCOSE Negative (NEGATIVE); UROBILINOGEN,URINE 0.2 EU/dL (0.2)
[2024-04-02 21:00] LABS: ALANINE AMINOTRANSFERASE 10 U/L (12-78); ALKALINE PHOSPHATASE 149 U/L (46-116); ASPARTATE AMINOTRANSFERASE 23 U/L (15-37); BILIRUBIN,TOTAL 0.2 mg/dL (0.2-1.0); TOTAL PROTEIN, SERUM 7.6 g/dL (6.4-8.2)
[2024-04-02] MEDS: VANCOMYCIN 1 GM in IV D5W 250 ML IV ONE (21:00)
[2024-04-02] MEDS: ONDANSETRON HCL/PF - ER 4 MG/2 ML VIAL IV ONE (21:00)
[2024-04-02] MEDS: CEFEPIME 1 GM in IV D5W 50 ML IV ONE (21:00)
[2024-04-02] MEDS: MORPHINE SULFATE INJ 2 MG/ML DISP.SYRIN IV ONE (21:00)
[2024-04-02 21:01] LABS: ALBUMIN 0.9 g/dL (3.4-5.0)
[2024-04-02 21:02] LABS: LACTIC ACID 1.3 mmol/L (0.4-2.0)
[2024-04-02 21:46] LABS: INR 1.03 (0.91-1.10); PARTIAL THROMBOPLASTIN TIME 26.3 SEC (24.3-34.3); PROTHROMBIN TIME 10.6 SECS (9.2-11.1)
[2024-04-02 22:02] LABS: ADD URINE CULTURE YES; BACTERIA,URINE 4+ /HPF (None Seen); RBC,URINE 21-50 /HPF (0-2); WBC,URINE 51-80 /HPF (0-3)
[2024-04-02 22:03] LABS: SQUAMOUS EPITHELIAL CELL,UR 0-2 /HPF (None Seen)
[2024-04-02 22:30] VITALS: BP 116/65; TEMP 100.8; O2SAT 97
[2024-04-02] MEDS: ENOXAPARIN SODIUM 40 MG/0.4 ML DISP.SYRIN SQ SCH (23:00)
[2024-04-02] MEDS ORDERED: MAGNESIUM HYDROXIDE 30 ML UDC PO PRN (23:00)
[2024-04-02] MEDS ORDERED: ZOLPIDEM TARTRATE 5 MG TABLET PO PRN (23:00)
[2024-04-02] MEDS ORDERED: MAG HYDROX/AL HYDROX/SIMETH 30 ML UDC PO PRN (23:00)
[2024-04-02] MEDS ORDERED: ONDANSETRON HCL/PF 4 MG/2 ML VIAL IVP PRN (23:00)
[2024-04-02] MEDS ORDERED: Z GUARD REMEDY 4 OZ OINT TP PRN (23:00)
[2024-04-03] VITALS (8 sets, daily range): BP systolic 101–121; BP diastolic 63–74; TEMP 97–98.2; O2SAT 97–98
[2024-04-03] MEDS: ALBUMIN 25% 25 GM in PREMIX 1 EA IV SCH
[2024-04-03 00:32] LABS: BASOPHILS % (MANUAL) 0 % (0.0-2.0); EOSINOPHILS % (MANUAL) 1 % (0-4); LYMPHOCYTES % (MANUAL) 21 % (16-48); MONOCYTES % (MANUAL) 2 % (0-11.0); NEUTROPHILS % (MANUAL) 76 (42-76); PLATELET ESTIMATE INCREASED
[2024-04-03 00:33] LABS: ANISOCYTOSIS 1+; HYPOCHROMASIA 1+; TARGET CELLS 1+
[2024-04-03] MEDS: MORPHINE SULFATE INJ 2 MG/ML DISP.SYRIN IV PRN (03:12)
[2024-04-03] MEDS: PANTOPRAZOLE 40 MG TABLET.DR PO SCH (08:19)
[2024-04-03] MEDS: VANCOMYCIN 1 GM in IV D5W 250 ML IV SCH (08:41)
[2024-04-03] MEDS ORDERED: Medication Not On Formulary EA (Cranberry Extract (Cranberry) 450 MG) PO SCH (09:00)
[2024-04-03] MEDS: PROSOURCE / PROSTAT (PYXIS) 30 ML UDC PO SCH (09:00)
[2024-04-03] MEDS: CEFEPIME 2 GM in IV D5W 100 ML IV SCH (09:00)
[2024-04-03] MEDS: TOLTERODINE 2 MG CAP.SR PO SCH (09:00)
[2024-04-03] MEDS: MIDODRINE HCL (5MG) 5 MG TABLET PO SCH (09:00)
[2024-04-03] MEDS ORDERED: DIVA-76 PO (09:21)
[2024-04-03] MEDS ORDERED: QUET50TA PO (09:21)
[2024-04-03] MEDS ORDERED: FERR325T24 PO (09:21)
[2024-04-03] MEDS ORDERED: BENZ0.5T43 PO (09:21)
[2024-04-03] MEDS ORDERED: ONDA4TAB5 PO (09:21)
[2024-04-03] MEDS ORDERED: CALC-263 PO (09:21)
[2024-04-03] MEDS ORDERED: DIVA-78 PO (09:21)
[2024-04-03] MEDS: ZINC SULFATE 220 MG CAPSULE PO SCH (09:50)
[2024-04-03] MEDS: MULTIVIT W/MINERALS 1 TAB TABLET PO SCH (09:50)
[2024-04-03] MEDS: CHOLECALCIFEROL 1,000 UNIT TABLET (VIT D3) PO SCH (09:50)
[2024-04-03] MEDS: ASCORBIC ACID 500 MG TABLET PO SCH (09:50)
[2024-04-03] MEDS: ASPIRIN 81 MG TAB.CHEW PO SCH (09:50)
[2024-04-03] MEDS: ESCITALOPRAM OXALATE (10 MG) 10 MG TABLET PO SCH (09:53)
[2024-04-03] MEDS: DAKINS QUARTER STRENGTH (0.125%) 480 ML BOTTLE TOP SCH (10:00)
[2024-04-03] MEDS ORDERED: diphenhydrAMINE HCL 25 MG CAPSULE PO PRN (12:30)
[2024-04-03] MEDS: DIVALPROEX SODIUM 250 MG TABLET.DR PO SCH (12:30)
[2024-04-03] MEDS: HYDROCODONE/APAP 10/325MG TABLET PO PRN (14:02)
[2024-04-03] MEDS: FERROUS SULFATE (325 MG) 325 MG/TAB TABLET PO SCH (17:00)
[2024-04-03] MEDS: BENZTROPINE MESYLATE (1 MG) 1 MG TABLET PO SCH (17:00)
[2024-04-03] MEDS: ARGININE/GLUTAMINE/CALCIUM BMB 1 EACH POWD.PACK PO SCH (17:00)
[2024-04-03] MEDS: DIVALPROEX SODIUM 500 MG TABLET.DR PO SCH (21:15)
[2024-04-03] MEDS: QUETIAPINE FUMARATE 25 MG TABLET PO SCH (21:15)
[2024-04-04] MEDS: ACETAMINOPHEN 325 MG TABLET PO PRN (00:16)
[2024-04-04 08:30] VITALS: BP 112/70; TEMP 97.5; O2SAT 100
[2024-04-04] MEDS: LEVOFLOXACIN (250MG) 250 MG TABLET PO SCH (09:25)
[2024-04-04] MEDS: MUPIROCIN OINT 2% 22 GM TUBE NS SCH (21:00)
[2024-04-04] MEDS: DOXYCYCLINE HYCLATE (100 MG) 100 MG TABLET PO SCH (21:26)
[2024-04-05 08:00] VITALS: BP 141/65; TEMP 97.9; O2SAT 98
[2024-04-05 08:01] VITALS: BP 111/65; TEMP 97.9; O2SAT 98
[2024-04-05 13:09] VITALS: BP_SYST 90; BP_SYST 99; BP_DIAS 60
[2024-04-05] MEDS ORDERED: LEVO500T90 PO (14:43)
[2024-04-05] MEDS ORDERED: DOXY100C2 PO (14:43)
[2024-04-05 16:00] VITALS: BP 92/52; TEMP 97.5; O2SAT 98
[2024-04-06 20:00] VITALS: BP 105/63; TEMP 98.2; O2SAT 98
[2024-04-07 16:00] VITALS: BP 116/97; TEMP 98.1; O2SAT 99
[2024-04-08 08:14] VITALS: BP_SYST 116; BP_SYST 119; BP_DIAS 62; BP_DIAS 69; TEMP 97.9; O2SAT 95; O2SAT 96
[2024-04-08] MEDS: NITROFURANTOIN/MONOHYDRATE MACROCRYSTALS 100 MG CAPSULE PO SCH (13:27)
[2024-04-08 20:00] VITALS: TEMP 97.9
[2024-04-09 08:25] VITALS: BP 109/68; TEMP 98.4; O2SAT 99
[2024-04-09 08:26] VITALS: BP 105/63; TEMP 98.4; O2SAT 96
[2024-04-09 16:11] VITALS: BP 116/73; TEMP 97.7; O2SAT 96
[2024-04-09 20:00] VITALS: BP 109/68; TEMP 98.4; O2SAT 99
[2024-04-10 07:40] VITALS: BP 108/68; TEMP 98.1; O2SAT 98
[2024-04-11 08:00] VITALS: BP 105/64; TEMP 97.7; O2SAT 97
[2024-04-11 16:00] VITALS: BP 105/65; TEMP 98; O2SAT 97
[2024-04-11 20:00] VITALS: BP 114/98; TEMP 98.2; O2SAT 97
== END 2024-04-12 09:30 | DRG 720 ==
LOC: ER 19:15 → MED 21:28
PROVIDERS: ADMIT Nurse Practitioner Family
PROC: 30233N1 Transfusion of Nonautologous Red Blood Cells into Peripheral Vein, Percutaneous Approach (ICD-10-PCS; principal; 2024-04-03)
DX: A41.9 Sepsis, unspecified organism (principal); E43 Unspecified severe protein-calorie malnutrition; E22.2 Syndrome of inappropriate secretion of antidiuretic hormone; L89.154 Pressure ulcer of sacral region, stage 4; G82.20 Paraplegia, unspecified; E86.9 Volume depletion, unspecified; E88.09 Other disorders of plasma-protein metabolism, not elsewhere classified; D64.9 Anemia, unspecified; N39.0 Urinary tract infection, site not specified; D75.839 Thrombocytosis, unspecified; N31.9 Neuromuscular dysfunction of bladder, unspecified; F41.9 Anxiety disorder, unspecified; V89.2XXS Person injured in unspecified motor-vehicle accident, traffic, sequela; Z79.82 Long term (current) use of aspirin; Z87.440 Personal history of urinary (tract) infections; Z91.199 Patient's noncompliance with other medical treatment and regimen due to unspecified reason; Z93.3 Colostomy status; B96.20 Unspecified Escherichia coli [E. coli] as the cause of diseases classified elsewhere; Z87.820 Personal history of traumatic brain injury; Z89.511 Acquired absence of right leg below knee; Z89.512 Acquired absence of left leg below knee; F39 Unspecified mood [affective] disorder; R59.0 Localized enlarged lymph nodes; Z68.25 Body mass index [BMI] 25.0-25.9, adult; Z16.24 Resistance to multiple antibiotics
CPT/HCPCS: 36415; 71045-TC; 80048-TC; 80076-TC; 81001; 83605-TC; 84484-TC; 85025-TC; 85730-TC; 86850-TC; 87040-TC; 87081-TC; 87086-TC; A4216; A4217; A4223; A6253; A6403; G0378; J0692; J1650; J2270; J2405; J3370; J7060; P9016; P9047